=== PATIENT | female | born 1990 | race Hispanic/Latino ===

== ENCOUNTER 2018-04-15 10:56 | Outpatient (CLI) | payer OTHER ==
[2018-04-15 11:25] VITALS: BP 111/71
--- NOTE | 2018-04-15 14:16 | Ultrasound Report ---
ULTRASOUND BIOPHYSICAL PROFILE: History: well being Technique: Transabdominal ultrasound with Doppler interrogation. 2 - breathing movements 2 - movements 2 - posture and tone 2 - Qualitative amniotic fluid volume 8 - TOTAL SCORE OF POSSIBLE 8 Heart Rate (bpm) 135
--- NOTE | 2018-04-15 14:17 | Ultrasound Report ---
ULTRASOUND OB LIMITED History: FABRIZIO Technique: Transabdominal ultrasound with Doppler interrogation. Gestation: Single Position: Cephalic Amniotic Fluid: Normal FABRIZIO = 12.2 cm Heart Rate: 135 BPM
== END 2018-04-15 13:00 | disposition home or self-care (01) ==
LOC: TRG 10:56
PROVIDERS: ATTEND Obstetrics & Gynecology
DX: O47.1 False labor at or after 37 completed weeks of gestation (principal); Z3A.40 40 weeks gestation of pregnancy
CPT/HCPCS: 59025; 76815; 76819; 87116

== ENCOUNTER 2018-04-18 17:07 | Inpatient (IN) | payer OTHER ==
--- NOTE | 2018-04-18 18:54 | History and Physical Report ---
History of Present Illness Date of examination: 04/18/18 Date of admission: 04/18/18 17:07 Chief complaint: Induction of labor History of present illness: Pt is a 27yo WF EDC 04/12/18; EGA 40 6/7 weeks presents for induction of labor. She received late care at [facility] since 34 weeks and course has been unremarkable. records are available and GBS is Positive. Past History Past Medical History: no pertinent history Past Surgical History: no surgical history Family/Genetic History: none Social history: no significant social history, - Obstetrical History Expected Date of Delivery: 04/12/18 Actual Gestation: 41 Week(s) 0 Day(s) : 3 Medications and Allergies Allergies Allergy/AdvReac Type Severity Reaction Status Date / Time No Known Allergies Allergy Verified 04/15/18 11:30 Home Medications Medication Instructions Recorded Confirmed Last Taken Type No Known Home Medications [No 04/15/18 04/15/18 Unknown History Reported Home Medications] Review of Systems All systems: negative - Vital Signs Vital signs: Vital Signs Pulse BP 68 111/72 04/18/18 18:27 04/18/18 18:27 Temp Pulse Resp BP Pulse Ox 68 111/72 04/18/18 18:27 04/18/18 18:27 - Physical Exam Breasts: Positive: deferred Cardiovascular: Regular rate Lungs: Positive: Clear to auscultation Abdomen: Positive: normal appearance, soft Vagina: Positive: normal moisture Uterus: Positive: enlarged - Obstetrical FHR: category 1 Uterine Contraction Monitor Mode: External Cervical Dilatation: 1 Cervical Effacement Percentage: 60 station: -2 Results Result Diagrams: 04/18/18 19:24 All other labs normal. Assessment and Plan - Patient Problems (1) 40 weeks gestation of Onset Date: 04/18/18 Current Visit: Yes Status: Acute Plan to address problem: A: IUP @ 40 6/7 weeks +GBS P: Admit to L&D for pitocin induction of labor IV Ampicillin Expectant vaginal delivery
[2018-04-18] MEDS ORDERED: STADOL IV PRN (18:56)
[2018-04-18] MEDS ORDERED: ePHEDrine SULFATE IV PRN (18:56)
[2018-04-18] MEDS ORDERED: POLYCILLIN/NS 2 GM/100 ML 2 GM/100 ML BAG IV ONE (18:56)
[2018-04-18] MEDS ORDERED: MINERAL OIL PO PRN (18:56)
[2018-04-18] MEDS ORDERED: PHENERGAN PO PRN (18:56)
[2018-04-18] MEDS ORDERED: BRETHINE SUB-Q PRN (18:56)
[2018-04-18] MEDS ORDERED: BRETHINE IVP PRN (18:56)
[2018-04-18] MEDS ORDERED: XYLOCAINE 2% INFILTRATI ONE (18:56)
[2018-04-18] MEDS ORDERED: SUBLIMAZE IV PRN (18:56)
[2018-04-18] MEDS ORDERED: ZOFRAN IV PRN (18:56)
[2018-04-18] MEDS ORDERED: AMBIEN PO PRN (18:59)
[2018-04-18] MEDS ORDERED: PITOCin/NS 30 UNIT/500ML 30 UNITS/500 ML BAG IV SCH ×2 (19:00)
[2018-04-18] MEDS ORDERED: PITOCin/NS 20 UNIT/1000ML DRIP 20 UNITS/1,000 ML BAG IV SCH (19:00)
[2018-04-18 20:30] LABS: Hematocrit 34.2 % (30.3-42.9); Hemoglobin 11.4 gm/dl (10.1-14.3); Mean Corpuscular HGB Conc 33 % (30-34); Mean Corpuscular Hemoglobin 32 pg (28-32); Mean Corpuscular Volume 95 fl (79-97); Platelet Count 203 K/mm3 (140-440); Red Blood Count 3.59 M/mm3 (3.65-5.03); Red Cell Distribution Width 14.1 % (13.2-15.2)
[2018-04-18] MEDS: LACTATED RINGERS 1,000 ML IV SCH (20:40)
[2018-04-19] MEDS: LACTATED RINGERS 1,000 ML IV SCH ×2 (00:24→02:11)
[2018-04-19] MEDS: AMPICILLIN/NS 1 GM/50 ML 1 GM/50 ML BAG IV SCH ×2 (00:24→04:00)
[2018-04-19] MEDS ORDERED: NARCAN 2 MG/2 ML IV PRN (02:46)
[2018-04-19] MEDS ORDERED: ePHEDrine SULFATE IV PRN (02:46)
[2018-04-19] MEDS ORDERED: fentaNYL-BUPIV 2 MCG/ML-0.125% 200 MCG/100 ML BAG EPIDURAL SCH (03:00)
--- NOTE | 2018-04-19 05:56 | Procedure Note ---
OB Delivery Note - Delivery Date of Delivery: 04/19/18 Surgeon: MARISEL MORENO Estimated blood loss: 100cc - Vaginal Delivery presentation: vertex Delivery position: OA Intrapartum events: mult.variable deceleratio Delivery induction: oxytocin Delivery augmentation: rupture of membranes, pitocin Delivery monitor: external FHT, external uterine Route of delivery: Delivery placenta: spontaneous Delivery cord: 3 umbilical vessels Episiotomy: none Delivery laceration: none Anesthesia: epidural Delivery comments: Infant delivered OA and placed on Mom's chest for paly-dc-geut bonding and delayed cord clamping, cut by Dad - Infant A at 1 minute: 8 at 5 minutes: 9 Infant Gender: Female (3479gms)
[2018-04-19] MEDS ORDERED: TYLENOL PO PRN (06:00)
[2018-04-19] MEDS ORDERED: SODIUM CHLORIDE FLUSH SYRINGE 10 ML IV PRN (06:00)
[2018-04-19] MEDS ORDERED: DULCOLAX PR PRN (06:00)
[2018-04-19] MEDS ORDERED: PITOCin/NS 20 UNIT/1000ML DRIP 20 UNITS/1,000 ML BAG IV SCH (06:00)
[2018-04-19] MEDS ORDERED: LANSINOH TP PRN (06:00)
[2018-04-19] MEDS ORDERED: MILK OF MAGNESIA PO PRN (06:00)
[2018-04-19] MEDS ORDERED: NORCO 5/325 PO PRN (06:00)
[2018-04-19] MEDS ORDERED: BENADRYL PO PRN (06:00)
[2018-04-19] MEDS ORDERED: ZOFRAN IV PRN (06:00)
[2018-04-19] MEDS ORDERED: PHENERGAN PO PRN (06:00)
[2018-04-19] MEDS ORDERED: PHENERGAN PR PRN (06:00)
[2018-04-19] MEDS ORDERED: TUCKS PAD TP PRN (06:00)
[2018-04-19] MEDS ORDERED: COLACE PO SCH (10:00)
[2018-04-19] MEDS ORDERED: PRENATAL VITAMIN PO SCH (10:00)
[2018-04-19] MEDS: MOTRIN PO SCH ×2 (11:55→18:10)
[2018-04-19] MEDS: FEOSOL PO SCH ×2 (13:09→22:01)
[2018-04-19 19:23] LABS: Hemoglobin 10.9 gm/dl (10.1-14.3)
[2018-04-20] MEDS: MOTRIN PO SCH ×2 (00:15→05:31)
[2018-04-20] MEDS ORDERED: M-M-R II VACCINE SUB-Q ONE (06:00)
[2018-04-20] MEDS ORDERED: BOOSTRIX IM ONE (06:00)
--- NOTE | 2018-04-20 07:57 | Progress Note ---
Assessment and Plan - Patient Problems (1) 40 weeks gestation of Onset Date: 04/18/18 Current Visit: Yes Status: Resolved (2) (normal spontaneous vaginal delivery) Onset Date: 04/20/18 Current Visit: Yes Status: Resolved Plan to address problem: A: S/P - PPD #1 Doing well P: May go home today. Subjective - Subjective Date of service: 04/20/18 Principal diagnosis: s/p - PPD #1 Interval history: Pt is feeling well without complaints. Bleeding improved. Patient reports: appetite normal, voiding normally, pain well controlled, flatus , ambulating normally, no nauseated : doing well, nursing well Objective - Vital Signs Latest vital signs: Vital Signs Temp Pulse Resp BP BP Pulse Ox 04/20/18 01:44 97.3 F L 61 20 100/72 98 04/19/18 16:14 98.2 F 54 L 20 110/59 04/19/18 12:55 98 F 63 20 99/68 04/19/18 08:00 98.2 F 69 20 107/59 97 Intake and Output 04/19/18 04/20/18 04/20/18 22:59 06:59 14:59 Intake Total 840 240 Output Total 600 Balance 240 240 Intake: Oral 840 240 Output: Urine 600 Void 600 Other: Total, Intake Amount 240 240 Total, Output Amount 600 # Voids Void 1 1 - Exam Breasts: Present: deferred Cardiovascular: Present: Regular rate Lungs: Present: Clear to auscultation Abdomen: Present: normal appearance, soft Uterus: Present: normal, firm, fundal height below umbilicus Extremities: Present: normal - Labs Labs: Laboratory Tests 04/18/18 04/18/18 04/18/18 19:24 19:24 19:24 WBC 8.0 RBC 3.59 L Hgb 11.4 Hct 34.2 MCV 95 MCH 32 MCHC 33 RDW 14.1 Plt Count 203 RPR Nonreactive Blood Type O POSITIVE Antibody Screen Negative 04/19/18 18:39 WBC RBC Hgb 10.9 Hct 31.0 MCV MCH MCHC RDW Plt Count RPR Blood Type Antibody Screen
--- NOTE | 2018-04-20 11:05 | Discharge Summary ---
Providers - Providers Date of Admission: 04/18/18 17:07 Date of discharge: 04/20/18 Attending physician: MARISEL MORENO Primary care physician: MARISEL MORENO Hospitalization Reason for admission: induction of labor, IUP at term Delivery: Episiotomy: none Laceration: none Other procedures: none complications: none Discharge diagnosis: IUP at term delivered [place] baby: female Hospital course: Unremarkable. Condition at discharge: Good Disposition: DC-01 TO HOME OR SELFCARE - Discharge Diagnoses (1) 40 weeks gestation of Status: Resolved (2) (normal spontaneous vaginal delivery) Status: Resolved Plan - Discharge Medications Prescriptions: Ferrous Sulfate [Feosol 325 MG tab] 325 mg PO BID #60 tablet Ibuprofen [Motrin 600 MG tab] 600 mg PO Q6H #30 tablet Vit-Fe Fumar-FA [ Vitamin] 1 each PO QDAY #30 tablet - Provider Discharge Summary Activity: routine, no sex for 6 weeks, no heavy lifting 4 weeks, no strenuous exercise Diet: routine Instructions: routine Additional instructions: [] Smoking cessation referral if applicable(refer to patient education folder for contact #) [] Refer to [facility] Booklet Call your doctor immediately for: * Fever > 100.5 * Heavy vaginal bleeding ( >1 pad per hour) * Severe persistent headache * Shortness of breath * Reddened, hot, painful area to leg or breast * Drainage or odor from incision. * Keep incision clean and dry at all times and follow doctor's instructions regarding bathing/showering - Follow up plan Follow up: MARISEL MORENO MD [Primary Care Provider] - 6 Weeks MARK WISEMAN CNM [Advanced Practice Nurse] - 6 Weeks
[2018-04-20 13:00] VITALS: BP 101/65
== END 2018-04-20 12:50 | disposition home or self-care (01) | DRG 775 ==
LOC: LD 17:07 → OB 04-19 08:29
PROVIDERS: ADMIT Obstetrics & Gynecology; ATTEND Obstetrics & Gynecology
PROC: 10E0XZZ Delivery of Products of Conception, External Approach (ICD-10-PCS; principal; 2018-04-19)
PROC: 3E033VJ Introduction of Other Hormone into Peripheral Vein, Percutaneous Approach (ICD-10-PCS; 2018-04-19)
PROC: 3E0R3BZ Introduction of Anesthetic Agent into Spinal Canal, Percutaneous Approach (ICD-10-PCS; 2018-04-19)
PROC: 00HU33Z Insertion of Infusion Device into Spinal Canal, Percutaneous Approach (ICD-10-PCS; 2018-04-19)
DX: O76 Abnormality in fetal heart rate and rhythm complicating labor and delivery (principal); O99.824 Streptococcus B carrier state complicating childbirth; Z3A.40 40 weeks gestation of pregnancy; Z37.0 Single live birth
CPT/HCPCS: 36415; 85014; 85018; 85027; 86592; 86850; 86900; 86901; 90707; 99211; A6250; G0463; J0290; J0595; J2590; J7120